=== PATIENT | male | born 1935 | race Two or more races ===

== ENCOUNTER 2023-04-06 03:21 | Emergency (ER) | payer OTHER ==
[~2023-04-06] VITALS: Ht 167.6 cm; Wt 62.1 kg
[2023-04-06] MEDS ORDERED: CATAPRES0.3 MG PO (03:31)
[2023-04-06] MEDS ORDERED: TAMS0.4C (03:31)
[2023-04-06] MEDS ORDERED: GLUMETZA500 MG PO (03:32)
[2023-04-06] MEDS ORDERED: SYNTHROID50 MCG PO (03:32)
[2023-04-06] MEDS ORDERED: CRESTOR10 MG PO (03:33)
[2023-04-06] MEDS ORDERED: ARICEPT5 MG (03:33)
[2023-04-06] MEDS ORDERED: KAPSPARGO SPRIN50 MG PO (03:33)
== END 2023-04-06 04:58 | disposition home or self-care (01) ==
LOC: ER 03:21
DX: I10 Essential (primary) hypertension (principal); G43.909 Migraine, unspecified, not intractable, without status migrainosus